=== PATIENT | female | born 1995 | race Asian ===

== ENCOUNTER 2018-11-17 08:36 | Emergency (ER) | payer BC, OTHER ==
[~2018-11-17] VITALS: Ht 180.3 cm; Wt 104.0 kg
[2018-11-17] MEDS ORDERED: EPINEPHRINE 1 MG/ML, 1ML ONE (09:26)
[2018-11-17] MEDS ORDERED: DIPHENHYDRAMINE 25 MG CAPSULE ONE (09:27)
[2018-11-17] MEDS ORDERED: FAMOTIDINE 20 MG TABLET ONE (09:27)
[2018-11-17] MEDS ORDERED: EPINEPHRINE 1 MG/ML, 1ML IM ONE (09:30)
[2018-11-17] MEDS ORDERED: FAMOTIDINE 20 MG TABLET PO ONE (09:30)
[2018-11-17] MEDS ORDERED: DIPHENHYDRAMINE 25 MG CAPSULE PO ONE (09:30)
--- NOTE | 2018-11-17 09:35 | NUR ---
LATE NOTE ENTRY FOR 0852: Pt c/o "hives all over my body and face that started on Friday and have gotten worse. My hands are red and swollen." Pt denies cp, sob, n/v/d, trauma, or any known allergies. Pt states, "I just had a two weeks ago." NADN. Pt connected to all monitors. Call light within reach. Pt is AOX4, ulabored respirations equal bilaterally, steady gait and balance, and skin is pink, warm, and dry with urticaria covering pt's face, back, abdomen, chest, arms, and legs anterior and posterior. Pt has erythemia of hands equal bilaterally and pt's hands are both edematous. Warm blanket provided for comfort measures.
--- NOTE | 2018-11-17 09:37 | NUR ---
Provided pt medication per [facility]. NADN. No needs expressed at this time.
[2018-11-17 10:48] VITALS: BP 116/65
== END 2018-11-17 10:50 | disposition home or self-care (01) ==
LOC: ED 10:00
DX: L50.9 Urticaria, unspecified (principal)
CPT/HCPCS: 96372; 99284; J0171; J7512; Q0163

== ENCOUNTER 2020-05-01 20:42 | Emergency (ER) | payer BC, OTHER ==
[~2020-05-01] VITALS: Ht 180.3 cm; Wt 86.5 kg
[2020-05-01] MEDS ORDERED: TRANEXAMIC ACID 1,500 MG in SODIUM CHLORIDE 0.9% 100 ML IV ONE (21:00)
[2020-05-01] MEDS ORDERED: SODIUM CHLORIDE 0.9% 1,000ML IVBOLUS ONE ×2 (21:00→23:30)
[2020-05-01] MEDS ORDERED: METHYLERGONOVINE 0.2 MG/ML IM ONE (21:30)
[2020-05-01 21:36] LABS: BASOPHILS # (AUTO) 0.03 x10^3/uL (0-0.1); BASOPHILS % (AUTO) 0 % (0-1); EOSINOPHILS # (AUTO) 0.07 x10^3/uL (0-0.4); EOSINOPHILS % (AUTO) 1 % (1-7); LYMPHOCYTES # (AUTO) 2.09 x10^3/uL (1-3.4); LYMPHOCYTES % (AUTO) 14 % (22-44); MD NO; MEAN CORPUSCULAR HEMOGLOBIN 27.2 pg (27.0-34.8); MEAN CORPUSCULAR HGB CONC 32.8 g/dL (32.4-35.8); MEAN PLATELET VOLUME 8.7 fL (7.4-10.4); MONOCYTES # (AUTO) 0.73 x10^3/uL (0.2-0.8); MONOCYTES % (AUTO) 5 % (2-9); NEUTROPHILS # (AUTO) 12.47 x10^3/uL (1.8-6.8); NEUTROPHILS % (AUTO) 81 % (42-75); PLATELET COUNT 218 x10^3/uL (130-400); RED BLOOD COUNT 3.49 x10^6/uL (3.82-5.3); RED CELL DISTRIBUTION WIDTH 14.4 % (9.6-15.2)
[2020-05-01 21:47] LABS: ANION GAP 6 mmol/L (5-15); CALCIUM 7.7 mg/dL (8.5-10.1); CHLORIDE 113 mmol/L (98-107); CREATININE 0.77 mg/dL (0.55-1.02)
--- NOTE | 2020-05-01 22:07 | NUR ---
US AT BEDSIDE.
[2020-05-01] MEDS ORDERED: ONDANSETRON 2MG/ML, 2ML ONE (22:39)
[2020-05-01] MEDS ORDERED: ONDANSETRON 2MG/ML, 2ML IVPush ONE (23:00)
--- NOTE | 2020-05-01 23:34 | NUR ---
PT ATTEMPTED TO AMBULATE AND FELT DIZZY. INFORMED PROVIDER. WILL GIVE ADDITIONAL 1L IVF BOLUS AND REASSESS.
[2020-05-02 00:32] VITALS: BP 97/55
--- NOTE | 2020-05-02 00:34 | NUR ---
PT AMBULATED AROUND ER WITH STEADY GAIT. REPORTS SHE IS NO LONGER DIZZY OR LIGHTHEADED. HERE AND PT BEING D/C HOME. DR. BALLARD TO BEDSIDE TO REEVALUATE.
== END 2020-05-02 00:42 | disposition home or self-care (01) ==
LOC: ED 05-02 00:13
DX: O03.1 Delayed or excessive hemorrhage following incomplete spontaneous abortion (principal); R42 Dizziness and giddiness; Z87.891 Personal history of nicotine dependence
CPT/HCPCS: 36415; 76830; 80048; 82040; 84702; 85025; 86850; 86900; 96361; 96372; 96374; 99291; J2210; J2405; J7030